=== PATIENT | female | born 1985 | race Caucasian/White ===

== ENCOUNTER 2018-07-22 21:05 | Emergency (ER) | payer MEDICAID ==
[~2018-07-22] VITALS: Ht 162.6 cm; Wt 72.6 kg
[~2018-07-22 21:05] MED LIST: CLIN300C11 PO; CLIN300C3 PO; HYDR-3455 PO; HYDR-4226 PO; NAPR-1071 PO; NAPR-243 PO; NF-CIPDEC OT; PRD20T PO; TRAM50TA2 PO
--- NOTE | 2018-07-22 21:59 | ED Psychosocial ---
General Chief Complaint: Substance Abuse Stated Complaint: TROUBLE SLEEPING Nursing Triage Note: PT. REPORTED 3 DAYS AGO SHE WAS DRINKING AND PARTYING. SHE WAS GIVEN IV DRUGS UNKNOWN WHAT THEY WERE. SHE REPORTED SHE HAS NOT SLEPT SINCE, SHE IS HEARING VOICES AND SHE CANT RELAX HER BODY KEEPS JERKING. SHE REPORTED SHE IS CONFUSED AND KEEPS STARING OFF AND CANT CONCENTRATE ON HER WORDS. Source: patient, family (brother) History of Present Illness Date Seen by Provider: Jul 22, 2018 Time Seen by Provider: 21:59 Initial Comments 32-year-old female presenting with complaints of trouble concentrating and sleeping. She used methamphetamines approximately 3 days ago and thinks that there were other drugs mixed in with it as well. She has been hearing voices and been very anxious and agitated in the last few days. Her family has been trying to help her as she does have a history of methamphetamine abuse. She has a hard time sitting still and has been unable to sleep because she can not relax or remain still without jerking. She denies being suicidal or homicidal. She is paranoid. Allergies and Home Medications Allergies Coded Allergies: No Known Drug Allergies (Unverified , 05/11/14) Home Medications Ciprofloxacin HCl/Dexameth 7.5 Ml Soln, 4 DROPS OT BID Prescribed by: CINDY VICENTE on 10/10/15 1340 Hydrocodone/Acetaminophen 1 Each Tablet, 1 EACH PO Q4H PRN for PAIN do not fill unless ciprodex is also filled. Prescribed by: CINDY VICENTE on 10/10/15 1340 Patient Home Medication List Home Medication List Reviewed: Yes Review of Systems Constitutional: No chills, No fever; malaise EENTM: other (dry mucus membranes); No ear pain, No vision loss, No epistaxis, No nose congestion Respiratory: cough; No dyspnea on exertion, No hemoptysis, No stridor Cardiovascular: No chest pain; palpitations Gastrointestinal: loss of appetite, nausea Genitourinary: decreased output; No dysuria Musculoskeletal: muscle cramps, muscle twitching Skin: change in color (red color to her skin) Psychiatric/Neurological: Anxiety, Emotional Problems, Tremors Past Oezbojn-Yluqov-Kehglc Hx Past Med/Social Hx: Reviewed Nursing Past Med/Soc Hx Patient Social History Alcohol Use: Regular Use Recreational Drug Use: Yes Drug of Choice: Methamphetamines Recent Foreign Travel: No Contact w/Someone Who Travel: No Recent Infectious Disease Expo: No Physical Abuse: No Sexual Abuse: No Mistreated: No Fear: No Immunizations Up To Date Tetanus Booster (TDap): Less than 5yrs Past Medical History Concussion, Traumatic Brain Injury Reproductive Disorders: No Adverse Reaction/Blood Tranf: No Family Medical History No Pertinent Family Hx Physical Exam Vital Signs - First Documented 07/22/18 21:20 Temp 97.8 Pulse 104 Resp 16 B/P (MAP) 145/94 (111) Pulse Ox 98 O2 Delivery Room Air Capillary Refill : Less Than 3 Seconds Height, Weight, BMI Height: 5'4.00" Weight: 160lbs. oz. 72.453556cb; BMI Method:Stated General Appearance: moderate distress HEENT: PERRL/EOMI, other (slightly dry mucus membranes) Neck: full range of motion, supple Respiratory: chest non-tender, lungs clear, normal breath sounds, no respiratory distress, no accessory muscle use Cardiovascular: normal peripheral pulses, regular rate, rhythm Gastrointestinal: normal bowel sounds, non tender, soft, no pulsatile mass Extremities: normal range of motion, non-tender, no pedal edema, normal capillary refill, other (erythema to hands and forearms) Neurologic/Psychiatric: international marketing coordinator II-XII nml as tested, no motor/sensory deficits, alert, other (anxious mood and disheveled appearance) Appearance/Memory: disheveled, impaired insight Behavior/Eye Contact: cooperative, increased rate of speech, compulsive Thoughts/Hallucinations: flight of ideas, paranoid Skin: warm/dry; No jaundice, No mottled; other (erythema to hands and forearms) Progress/Results/Core Measures Results/Orders My Orders Orders - BOSTON HORTON MD Lorazepam Tablet (Ativan Tablet) (07/22/18 22:18) Olanzapine Orally Dissolve Tab (Zyprexa (07/22/18 22:30) Medications Given in ED Current Medications Medications Dose Ordered Sig/Naya Route Start Time Stop Time Status Last Admin Dose Admin Olanzapine 5 mg ONCE ONCE PO 07/22/18 22:30 07/22/18 22:31 DC 07/22/18 22:24 5 MG Vital Signs/I&O 07/22/18 07/22/18 21:20 22:32 Temp 97.8 97.8 Pulse 104 104 Resp 16 16 B/P (MAP) 145/94 (111) 145/94 (111) Pulse Ox 98 98 O2 Delivery Room Air Room Air Blood Pressure Mean: 111 Progress Progress Note : Progress Note will try Ativan 2 mg po and Rapid Dissolving Zyprexa and see if that helps to calm her down and block some of the auditory hallucinations that she could rest. Counseled to avoid drugs and alcohol the future. Will have her follow-up through the clinics for further evaluation and treatment as needed. Departure Impression Primary Impression: Drug-induced psychotic disorder with hallucinations Additional Impressions: Methamphetamine abuse, episodic Insomnia Qualified Codes: F19.982 - Other psychoactive substance use, unspecified with psychoactive substance-induced sleep disorder Disposition: HOME, SELF-CARE Condition: Stable Departure-Patient Inst. Decision time for Depature: 22:22 Referrals: NO,LOCAL PHYSICIAN (PCP/Family) Primary Care Physician Patient Instructions: ALCOHOL AND SUBSTANCE ABUSE, Acute Psychosis (DC), Drug Abuse and Drug Addiction (DC), Methamphetamine Add. Discharge Instructions: Do not use drugs or alcohol Stay well hydrated and get plenty of rest Follow up with clinic for continued problems/concerns All discharge instructions reviewed with patient and/or family. Voiced understanding. BOSTON HORTON MD Jul 22, 2018 21:59
[2018-07-22] MEDS ORDERED: LORazepam 0.5 MG (ATIVAN) TABLET PO STA (22:18)
[2018-07-22] MEDS ORDERED: OLANZapine 5 MG ODT (ZyPREXA ZYDIS) PO ONE (22:30)
[2018-07-22 22:32] VITALS: BP 145/94
== END 2018-07-22 22:26 | disposition home or self-care (01) ==
LOC: EDUNIT# 21:05 → ER FS 21:07
DX: F19.959 Other psychoactive substance use, unspecified with psychoactive substance-induced psychotic disorder, unspecified (principal); F15.10 Other stimulant abuse, uncomplicated; G47.00 Insomnia, unspecified; Z87.820 Personal history of traumatic brain injury
CPT/HCPCS: 99283

== ENCOUNTER 2018-11-04 02:15 | Emergency (ER) | payer SELFPAY ==
[~2018-11-04] VITALS: Ht 154.9 cm; Wt 63.5 kg
--- NOTE | 2018-11-04 02:20 | NUR ---
Patient was intubated by EMS
--- NOTE | 2018-11-04 02:37 | NUR ---
PMH is unknown, all information is recalled.
[2018-11-04] MEDS ORDERED: NS IV 1000 ML 1,000 ML IV SCH (02:45)
[2018-11-04] MEDS ORDERED: TETANUS,DIPTH,PERTUSS P/F (BOOSTRIX) 0.5 ML VIAL IM ONE (02:45)
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
[2018-11-04 03:11] LABS: INR 1.1 (0.8-1.4); PROTHROMBIN TIME PATIENT 14.3 SEC (12.2-14.7)
[2018-11-04 03:12] LABS: AMPHETAMINE SCREEN, URINE NEGATIVE (NEGATIVE); BARBITURATE SCREEN URINE NEGATIVE (NEGATIVE); BENZODIAZEPINES SCREEN URINE NEGATIVE (NEGATIVE); CANNABINOID SCREEN, URINE NEGATIVE (NEGATIVE); COCAINE SCREEN URINE NEGATIVE (NEGATIVE); METHADONE STAT NEGATIVE (NEGATIVE); METHAMPHETAMINE SCREEN URINE S NEGATIVE (NEGATIVE); OPIATE SCREEN URINE NEGATIVE (NEGATIVE); OXYCODONE STAT NEGATIVE (NEGATIVE); PROPOXYPHENE STAT NEGATIVE (NEGATIVE); TRICYCLIC ANTIDEPRESSANTS SCRE NEGATIVE (NEGATIVE)
[2018-11-04 03:13] LABS: BASOPHILS # (AUTO) 0.1 10^3/uL (0.0-0.1); BASOPHILS % (AUTO) 1 % (0-10); EOSINOPHILS % (AUTO) 0 % (0-10); HEMATOCRIT 41 % (35-52); HEMOGLOBIN 13.3 G/DL (11.5-16.0); LYMPHOCYTES # (AUTO) 9.6 X 10^3 (1.0-4.0); LYMPHOCYTES % (AUTO) 52 % (12-44); MEAN CORPUSCULAR HEMOGLOBIN 28 PG (25-34); MEAN CORPUSCULAR HGB CONC 32 G/DL (32-36); MEAN CORPUSCULAR VOLUME 86 FL (80-99); MEAN PLATELET VOLUME 8.8 FL (7.4-10.4); MONOCYTES # (AUTO) 1.5 X 10^3 (0.0-1.0); MONOCYTES % (AUTO) 8 % (0-12); NEUTROPHILS # (AUTO) 7.2 X 10^3 (1.8-7.8); NEUTROPHILS % (AUTO) 39 % (42-75); PLATELET COUNT 308 10^3/uL (130-400); RED CELL DISTRIBUTION WIDTH 19.8 % (10.0-14.5); WHITE BLOOD COUNT 18.5 10^3/uL (4.3-11.0)
[2018-11-04 03:14] LABS: CLARITY,URINE CLOUDY; COLOR,URINE YELLOW
[2018-11-04 03:15] LABS: BILIRUBIN,URINE NEGATIVE (NEGATIVE); GLUCOSE, URINE (UA) NEGATIVE (NEGATIVE); KETONES,URINE NEGATIVE (NEGATIVE); LEUKOCYTE ESTERASE ,URINE 1+ (NEGATIVE); NITRITE,URINE NEGATIVE (NEGATIVE); PH,URINE 6.5 (5-9); PROTEIN,URINE 2+ (NEGATIVE); UROBILINOGEN,URINE 0.2 MG/DL (NORMAL)
[2018-11-04 03:15] LABS: CARBON DIOXIDE 29 MMOL/L (21-32); CHLORIDE 103 MMOL/L (98-107); POTASSIUM 4.2 MMOL/L (3.6-5.0); SODIUM 146 MMOL/L (135-145)
[2018-11-04 03:16] LABS: ALANINE AMINOTRANSFERASE 84 U/L (0-55); ALBUMIN 4.2 GM/DL (3.2-4.5); ALKALINE PHOSPHATASE 115 U/L (40-136); BILIRUBIN,TOTAL 0.5 MG/DL (0.1-1.0); BUN/CREATININE RATIO 10; CALCIUM 8.4 MG/DL (8.5-10.1); CREATININE SERUM 0.62 MG/DL (0.60-1.30); GFR ESTIMATED > 60; GLUCOSE 168 MG/DL (70-105); TOTAL PROTEIN 7.2 GM/DL (6.4-8.2)
[2018-11-04 03:27] LABS: NEUTROPHILS % (MANUAL) 38 %
[2018-11-04 03:28] LABS: ATYPICAL LYMPHOCYTES 25 %; LYMPHOCYTES % (MANUAL) 33 %; MONOCYTES % (MANUAL) 4 %; RBC MORPH NORMAL
[2018-11-04 03:28] LABS: BACTERIA,URINE LARGE /HPF; SQUAMOUS EPITHELIAL CELL,UR 25-50 /HPF
[2018-11-04 03:29] LABS: AMORPHOUS SEDIMENT,UR MOD AMOR URATES /LPF
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
[2018-11-07 18:47] VITALS: BP 154/78
== END 2018-11-04 03:10 | disposition short-term general hospital (02) ==
LOC: EDUNIT# 02:15 → ER FS 02:16
DX: T20.30XA Burn of third degree of head, face, and neck, unspecified site, initial encounter (principal); T22.391A Burn of third degree of multiple sites of right shoulder and upper limb, except wrist and hand, initial encounter; T21.21XA Burn of second degree of chest wall, initial encounter; F10.129 Alcohol abuse with intoxication, unspecified; Y90.9 Presence of alcohol in blood, level not specified; R40.2112 Coma scale, eyes open, never, at arrival to emergency department; R40.2212 Coma scale, best verbal response, none, at arrival to emergency department; R40.2312 Coma scale, best motor response, none, at arrival to emergency department; X08.8XXA Exposure to other specified smoke, fire and flames, initial encounter
CPT/HCPCS: 36415; 51702; 71045; 80053; 80306; 80320; 81000; 84703; 85007; 85027; 85610; 85730; 87077; 87088; 87186; 90471; 90715; 93005; 93041; 99291

== ENCOUNTER 2019-05-17 09:59 | Inpatient (IN) | payer MEDICARE, MEDICAID ==
[2019-05-17] VITALS (9 sets, daily range): BP systolic 120–151; BP diastolic 78–98
[~2019-05-17] VITALS: Ht 162.5 cm; Wt 70.6 kg
[~2019-05-17 09:59] MED LIST changes: -TRAM50TA2 PO; +TRM50T PO
[2019-05-17] MEDS ORDERED: NS IV 1000 ML 1,000 ML IV SCH (10:30)
[2019-05-17] MEDS ORDERED: ONDANSETRON 4 MG/2 ML (SDV) Z0FRAN IVP ONE ×2 (10:30→14:30)
[2019-05-17 10:37] LABS: WHITE BLOOD COUNT 12.9 10^3/uL (4.3-11.0)
[2019-05-17 10:38] LABS: HEMATOCRIT 39 % (35-52); HEMOGLOBIN 13.1 G/DL (11.5-16.0); MEAN CORPUSCULAR HEMOGLOBIN 27 PG (25-34); MEAN CORPUSCULAR HGB CONC 34 G/DL (32-36); MEAN CORPUSCULAR VOLUME 79 FL (80-99); MEAN PLATELET VOLUME 9.6 FL (7.4-10.4); NEUTROPHILS % (AUTO) 78 % (42-75); PLATELET COUNT 123 10^3/uL (130-400); RED CELL DISTRIBUTION WIDTH 19.8 % (10.0-14.5)
[2019-05-17 10:39] LABS: BASOPHILS % (AUTO) 0 % (0-10); EOSINOPHILS % (AUTO) 0 % (0-10); LYMPHOCYTES # (AUTO) 0.6 X 10^3 (1.0-4.0); LYMPHOCYTES % (AUTO) 4 % (12-44); MONOCYTES # (AUTO) 2.1 X 10^3 (0.0-1.0); MONOCYTES % (AUTO) 17 % (0-12); NEUTROPHILS # (AUTO) 10.1 X 10^3 (1.8-7.8)
--- NOTE | 2019-05-17 10:52 | Diagnostic Imaging Report ---
Indication: Shortness of breath, alcohol withdrawal. Comparison: 11/04/2018 Findings: Single view of the chest demonstrates clear lungs bilaterally. The heart is normal. There is no pneumothorax but osseous structures normal. Impression: Negative chest. Dictated by: Dictated on workstation # [id number]
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
[2019-05-17 11:01] LABS: CANNABINOID SCREEN, URINE POSITIVE (NEGATIVE)
[2019-05-17 11:02] LABS: AMPHETAMINE SCREEN, URINE NEGATIVE (NEGATIVE); BARBITURATE SCREEN URINE NEGATIVE (NEGATIVE); BENZODIAZEPINES SCREEN URINE NEGATIVE (NEGATIVE); COCAINE SCREEN URINE NEGATIVE (NEGATIVE); METHADONE STAT NEGATIVE (NEGATIVE); METHAMPHETAMINE SCREEN URINE S NEGATIVE (NEGATIVE); OPIATE SCREEN URINE NEGATIVE (NEGATIVE); OXYCODONE STAT NEGATIVE (NEGATIVE); PROPOXYPHENE STAT NEGATIVE (NEGATIVE); TRICYCLIC ANTIDEPRESSANTS SCRE NEGATIVE (NEGATIVE)
[2019-05-17 11:10] LABS: BAND NEUTROPHILS 13 %; BASOPHILS % (MANUAL) 0 %; EOSINOPHILS % (MANUAL) 0 %; LYMPHOCYTES % (MANUAL) 6 %; MONOCYTES % (MANUAL) 8 %; NEUTROPHILS % (MANUAL) 73 %
[2019-05-17 11:19] LABS: CLARITY,URINE SLT CLOUDY; COLOR,URINE YELLOW
[2019-05-17 11:20] LABS: GLUCOSE, URINE (UA) NEGATIVE (NEGATIVE); KETONES,URINE 3+ (NEGATIVE); NITRITE,URINE NEGATIVE (NEGATIVE); PROTEIN,URINE 2+ (NEGATIVE)
[2019-05-17 11:21] LABS: BILIRUBIN,URINE 2+ (NEGATIVE); LEUKOCYTE ESTERASE ,URINE 1+ (NEGATIVE); WBC,URINE TNTC /HPF
[2019-05-17 11:22] LABS: BACTERIA,URINE MODERATE /HPF; SQUAMOUS EPITHELIAL CELL,UR RARE /HPF
[2019-05-17 11:25] LABS: BUN/CREATININE RATIO 26; CARBON DIOXIDE 20 MMOL/L (21-32); CHLORIDE 70 MMOL/L (98-107); GFR ESTIMATED > 60; POTASSIUM 2.9 MMOL/L (3.6-5.0); SODIUM 120 MMOL/L (135-145)
[2019-05-17 11:26] LABS: ALANINE AMINOTRANSFERASE 176 U/L (0-55); ALKALINE PHOSPHATASE 287 U/L (40-136); BILIRUBIN,TOTAL 1.2 MG/DL (0.1-1.0); CALCIUM 9.8 MG/DL (8.5-10.1); GLUCOSE 140 MG/DL (70-105); LIPASE 94 U/L (8-78); TOTAL PROTEIN 8.4 GM/DL (6.4-8.2)
[2019-05-17] MEDS ORDERED: cefTRIAXone FOR IV USE 1,000 MG in WATER (STERILE) FOR INJECTION 10 ML IV ONE (11:45)
[2019-05-17] MEDS ORDERED: PANTOPRAZOLE 40 MG (PROTONIX) VIAL IV ONE (11:45)
[2019-05-17] MEDS ORDERED: LORazepam INJ 2 MG/ML (ATIVAN) VIAL IVP PRN (11:45)
[2019-05-17] MEDS ORDERED: 1/2 NS IV SOLUTION 1,000 ML IV PRN (15:42)
[2019-05-17] MEDS ORDERED: LORazepam INJ 2 MG/ML (ATIVAN) VIAL IM/IV PRN (15:45)
[2019-05-17] MEDS ORDERED: D5 1/2 NS 1000 ML IV SOLUTION 1,000 ML IV PRN (15:45)
[2019-05-17] MEDS ORDERED: ONDANSETRON 4 MG (ZOFRAN) ORAL DISSOLVE TAB SL PRN (15:45)
[2019-05-17] MEDS ORDERED: SENNA W/DOCUSATE (SENOKOT S) TABLET PO PRN (15:45)
[2019-05-17] MEDS ORDERED: ONDANSETRON 4 MG/2 ML (SDV) Z0FRAN IV PRN (15:45)
[2019-05-17] MEDS ORDERED: ANTACID SUSP 30 ML UDC (MYLANTA) PO PRN (15:45)
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
[2019-05-17] MEDS ORDERED: CATHETER FLUSH 10 ML SYR IV PRN (16:00)
[2019-05-17] MEDS ORDERED: LEVO100T7 PO (16:13)
[2019-05-17] MEDS ORDERED: CITA40TA11 PO (16:13)
[2019-05-17] MEDS ORDERED: BUSP10TA95 PO (16:13)
[2019-05-17] MEDS: D5 1/2 NS W/KCL 20 MEQ/L 1,000 ML IV SCH (16:13)
[2019-05-17] MEDS ORDERED: TRZ50T PO (16:13)
[2019-05-17] MEDS ORDERED: THIAMINE 100 MG/ML 2 ML (VITAMIN B-1) VIAL IV NR (16:15)
[2019-05-17] MEDS ORDERED: KCL 20 MEQ TAB (K-DUR) PO NR (16:15)
--- NOTE | 2019-05-17 16:15 | NUR ---
SPOKE WITH THE PATIENT ABOUT HER MEDICATIONS. SHE LISTED HER MEDS AND I COMPARED IT WITH THE EXT MED HX. THEY ARE PAST DUE FOR REFILL. SHE ADMITS SHE HAS NOT BEEN TAKING THEM PRESCRIBED. I NOTED THE PAST DUE FILL DATE ON THE MED REC. I DID CALL [facility] IN [place] AND VERIFIED THEY HAVE NOT FILLED ANYTHING FOR HER RECENTLY, THE SCRIPTS ON THE EXT MED [facility] [place]. PATIENT STATES SHE DOES TAKE ANY OTC MEDICATIONS.
[2019-05-17] MEDS ORDERED: ACETAMINOPHEN 500 MG TAB (TYLENOL) PO PRN (18:45)
[2019-05-17] MEDS ORDERED: IBUPROFEN 600 MG (MOTRIN) TAB PO ONE (18:45)
[2019-05-17] MEDS: IBUPROFEN 600 MG (MOTRIN) TAB PO SCH (18:53)
[2019-05-17] MEDS: MAGNESIUM 1 GM/100 ML IVPB 100 ML IV SCH ×2 (18:53→20:55)
[2019-05-17] MEDS: LORazepam INJ 2 MG/ML (ATIVAN) VIAL IV PRN (20:45)
[2019-05-17] MEDS: LORazepam 1 MG (ATIVAN) TAB PO PRN (23:38)
[2019-05-17] MEDS ORDERED: guaiFENesin/DM (ROBITUSSIN DM) 10 ML UDC ONE (23:39)
[2019-05-17] MEDS ORDERED: PSEUDOEPHEDRINE HCL 30 MG (SUDAFED) TAB PO PRN (23:45)
[2019-05-17] MEDS: guaiFENesin/DM (ROBITUSSIN DM) 10 ML UDC PO PRN (23:58)
[2019-05-18] VITALS (23 sets, daily range): BP systolic 99–135; BP diastolic 74–112
[2019-05-18] MEDS: D5 1/2 NS W/KCL 20 MEQ/L 1,000 ML IV SCH ×4 (00:45→17:48)
[2019-05-18 03:21] LABS: BASOPHILS % (AUTO) 0 % (0-10); EOSINOPHILS % (AUTO) 0 % (0-10); HEMATOCRIT 36 % (35-52); HEMOGLOBIN 12.3 G/DL (11.5-16.0); LYMPHOCYTES % (AUTO) 11 % (12-44); MEAN CORPUSCULAR HEMOGLOBIN 27 PG (25-34); MEAN CORPUSCULAR HGB CONC 34 G/DL (32-36); MEAN CORPUSCULAR VOLUME 81 FL (80-99); MONOCYTES # (AUTO) 1.2 X 10^3 (0.0-1.0); MONOCYTES % (AUTO) 13 % (0-12); NEUTROPHILS # (AUTO) 7.2 X 10^3 (1.8-7.8); NEUTROPHILS % (AUTO) 76 % (42-75); PLATELET COUNT 117 10^3/uL (130-400); RED CELL DISTRIBUTION WIDTH 20.7 % (10.0-14.5); WHITE BLOOD COUNT 9.4 10^3/uL (4.3-11.0)
[2019-05-18 03:39] LABS: BUN/CREATININE RATIO 10; CALCIUM 9.2 MG/DL (8.5-10.1); CARBON DIOXIDE 23 MMOL/L (21-32); CHLORIDE 88 MMOL/L (98-107); CREATININE SERUM 0.59 MG/DL (0.60-1.30); GFR ESTIMATED > 60; GLUCOSE 159 MG/DL (70-105); MAGNESIUM 2.4 MG/DL (1.6-2.4); SODIUM 128 MMOL/L (135-145)
[2019-05-18 03:50] LABS: PHOSPHORUS < 0.7 MG/DL (2.3-4.7)
--- NOTE | 2019-05-18 05:16 | Pulmonary Consultation ---
History of Present Illness History of Present Illness Date Seen by Provider: May 18, 2019 Time Seen by Provider: 05:13 Date of Admission History of Present Illness 33yo with hx of seizures, alcohol dependance presented to ED seeking detox. She drinks 1 liter of alcohol per day x "years". Last drink was day prior to admission. She believes she had a unwitnessed seizure prior to admission. I am consulted for ICU management. Allergies and Home Medications Allergies Coded Allergies: No Known Drug Allergies (Unverified , 05/11/14) Home Medications Buspirone HCl 10 Mg Tablet, 10 MG PO BID, (Reported) LAST FILLED #60 03-07-19 Citalopram Hydrobromide 40 Mg Tablet, 40 MG PO DAILY, (Reported) LAST FILLED #30 03-05-19 Levothyroxine Sodium 100 Mcg Tablet, 100 MCG PO DAILY, (Reported) LAST FILLED #90 01-25-19 Trazodone HCl 50 Mg Tablet, 50 MG PO HS, (Reported) LAST FILLED #30 03-05-19 Past Iprbrpa-Ofaqtv-Vasmtt Hx Past Med/Social Hx: Reviewed Nursing Past Med/Soc Hx Patient Social History Alcohol Use: Regular Use Number of Drinks Today: 0 Alcohol Beverage of Choice: Vodka Recreational Drug Use: No Drug of Choice: Methamphetamines Smoking Status: Current Everyday Smoker Type Used: Cigarettes 2nd Hand Smoke Exposure: No Recent Foreign Travel: No Contact w/Someone Who Travel: No Recent Infectious Disease Expo: No Recent Hopitalizations: No Physical Abuse: No Sexual Abuse: No Mistreated: No Fear: No Immunizations Up To Date Tetanus Booster (TDap): Less than 5yrs Seasonal Allergies Seasonal Allergies: No Past Medical History Surgeries: Yes (Skin Grafts) Respiratory: No Cardiac: No Neurological: Yes Concussion, Traumatic Brain Injury Reproductive Disorders: No Gastrointestinal: No Musculoskeletal: No Endocrine: Yes Hypothyroidsim HEENT: No Cancer: No Psychosocial: No Integumentary: No Blood Disorders: No Adverse Reaction/Blood Tranf: No Family Medical History No Pertinent Family Hx Review of Systems Time Seen by Provider: 06:18 Constitutional: Weakness, Malaise; No: Fever, Chills, Sweats, Other Eyes: No: Pain, Vision change, Conjunctivae inflammation, Eyelid inflammation, Other, Redness ENT: No: Ear pain, Ear discharge, Nose pain, Nose discharge, Nose congestion, Mouth pain, Mouth swelling, Throat pain, Throat swelling, Other Respiratory: No: Cough, Dry, Shortness of breath, SOB with excertion, Wheezing, Hemoptysis, Pleuritic Pain, Sputum, Wheezing, Other Cardiovascular: Paroxysmal Noc. Dyspnea, Lt Headedness; No: Chest Pain, Palpitations, Orthopnea, Edema, Other Sepsis Event Evaluation Height, Weight, BMI Height: 5'1.00" Weight: 140lbs. 0oz. 63.242300cz; 25.33 BMI Method:Estimated Exam Exam Vital Signs Date Time Temp Pulse Resp B/P (MAP) Pulse Ox O2 Delivery O2 Flow Rate FiO2 05/18/19 04:00 99 20 127/76 (93) 94 Room Air 05/18/19 04:00 96 Room Air 05/18/19 04:00 38.1 05/18/19 03:00 102 21 135/103 (114) 94 Room Air 05/18/19 02:00 87 21 119/81 (94) 96 Room Air 05/18/19 01:00 92 21 113/77 (89) 96 Room Air 05/18/19 01:00 90 05/18/19 00:00 37.4 05/18/19 00:00 96 Room Air 05/18/19 00:00 96 22 120/85 (97) 96 Room Air 05/17/19 23:00 80 22 120/85 (97) 96 Room Air 05/17/19 22:00 80 12 123/82 (96) 94 Room Air 05/17/19 21:00 89 20 123/83 (96) 93 Room Air 05/17/19 20:51 36.9 05/17/19 20:00 93 19 123/78 (93) 91 Room Air 05/17/19 20:00 96 Room Air 05/17/19 19:00 104 18 136/90 (105) 95 Room Air 05/17/19 19:00 104 05/17/19 18:53 38.1 05/17/19 18:00 102 32 142/95 (111) 95 Room Air 05/17/19 17:00 108 19 151/97 (115) 96 Room Air 05/17/19 16:29 Room Air 05/17/19 16:00 96 Room Air 05/17/19 16:00 135 16 151/98 (115) 96 Room Air 05/17/19 16:00 38.2 105 16 151/98 (115) 96 Room Air 05/17/19 15:25 111 05/17/19 15:25 112 20 140/82 (101) 98 Room Air 05/17/19 14:35 37.4 77 16 143/77 (100) 96 05/17/19 10:18 37.4 104 16 127/86 (100) 98 Room Air I & O 05/18/19 07:00 Intake Total 3200 ml Output Total 800 ml Balance 2400 ml Height & Weight Height: 5'1.00" Weight: 140lbs. 0oz. 63.269229jz; 25.33 BMI Method:Estimated General Appearance: No Apparent Distress, WD/WN, Chronically ill HEENT: No Moist Mucous Membranes, No Scleral Icterus (L), No Scleral Icterus (R); Other (right sided conjuncitivitis ) Neck: Normal Inspection, Supple Respiratory: Lungs Clear, No Accessory Muscle Use, No Respiratory Distress Cardiovascular: Regular Rate, Rhythm, No Murmur Capillary Refill: Less Than 3 Seconds Gastrointestinal: normal bowel sounds, non tender, soft Extremity: No Calf Tenderness, No Pedal Edema Neurologic/Psychiatric: Alert, Oriented x3, Depressed Affect Skin: Normal Color, Warm/Dry, Other (scars consistent with significant vee on bilateral lower arms) Results Lab Laboratory Tests 05/17/19 10:20 05/18/19 03:02 Assessment/Plan Assessment/Plan Alcohol detox -[facility] protocol Hyponatremia -Improving with current management. -May need to change to [facility] -Education Hypokalemia, hypophos -replace Hypothyroid -Continue synthroid Thrombocytopenia EMELINA CHACON DO May 18, 2019 05:16
[2019-05-18] MEDS: guaiFENesin/DM (ROBITUSSIN DM) 10 ML UDC PO PRN (05:36)
[2019-05-18] MEDS: LORazepam 1 MG (ATIVAN) TAB PO PRN ×6 (05:36→22:11)
[2019-05-18] MEDS: POTASSIUM CL 10MEQ/50ML IVPB 50 ML IV SCH ×4 (05:52→08:37)
[2019-05-18] MEDS: ENOXAPARIN 40 MG/0.4 ML (LOVENOX) SYR SC SCH (05:53)
[2019-05-18] MEDS: IBUPROFEN 600 MG (MOTRIN) TAB PO SCH ×3 (05:53→22:09)
[2019-05-18] MEDS: FOLIC ACID 1 MG TAB PO SCH (06:12)
[2019-05-18] MEDS: THIAMINE 100 MG (VITAMIN B-1) TAB PO SCH (06:12)
[2019-05-18] MEDS: LEVOTHYROXINE 100 MCG (LEVOTHROID) TAB PO SCH (06:12)
[2019-05-18] MEDS: MULTIVIT W/MINERALS TAB (THERAGRAN M) PO SCH (06:12)
[2019-05-18] MEDS ORDERED: POTASSIUM PHOSPHATE INJ 30 MM in NS (IVPB) 250 ML IV ONE (08:00)
--- NOTE | 2019-05-18 08:21 | Progress Note - Hospitalist ---
Subjective HPI/CC On Admission Date Seen by Provider: May 18, 2019 Time Seen by Provider: 08:16 She is a 33-year-old female with a past medical history of alcohol abuse and significant vee in October 2018 who presented to the emergency department seeking alcohol withdrawal. She reports she drinks 1 L of alcohol per day. She has done this for years. She does not relates to me in reason for her quick cessation of alcohol per ER physician this is been mandated by the state due to some custody issues. She reports her last drink was yesterday morning. She believes that she had a seizure yesterday afternoon. She has had multiple seizures in the past when she quit drinking. She reports feeling shaky at this time and is requesting Ativan. She was also found to have a sodium of 120. She was admitted to the ICU for active management of alcohol withdrawal and severe hyponatremia. Subjective/Events-last exam Pt reports doing better today. Smomewhat shakey and had hallucinations overnight that someone is in her room talking to her. Not currently hallucinating. Does complain of headache. Requesting ativan. Focused Exam Lactate Level 05/17/19 12:00: Lactic Acid Level 1.12 Objective Exam Vital Signs Vital Signs Date Time Temp Pulse Resp B/P (MAP) Pulse Ox O2 Delivery O2 Flow Rate FiO2 05/18/19 07:00 108 05/18/19 06:00 19 107/88 (94) 91 Room Air 05/18/19 04:00 38.1 Capillary Refill : Less Than 3 Seconds General Appearance: No Apparent Distress, WD/WN, Chronically ill Respiratory: Lungs Clear, No Respiratory Distress Cardiovascular: Regular Rate, Rhythm, No Murmur Gastrointestinal: Normal Bowel Sounds, Soft Neurologic/Psychiatric: Alert, Oriented x3 Results/Procedures Lab Laboratory Tests 05/17/19 10:20 05/18/19 03:02 Patient resulted labs reviewed. 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 consult- needs outpatient treatment Thiamine, MTV Seizure precautions Severe Hyponatremia- improving HAGMA- nearly resolved Likely due to alcoholic ketoacidosis and beer potomania na 128 today Continue IVF Thrombocytopenia new onset from October Likely due to #1 Stable this AM Hypophosphatemia Hypomagnesemia Hypokalemia Replace per protocol recheck this PM Hypothyroidism TSH 5.96 Resume home meds, per refill history has not been compliant Diagnosis/Problems Diagnosis/Problems (1) Thrombocytopenia Status: Acute (2) Alcoholic hepatitis Qualifiers: Ascites presence: without ascites Qualified Codes: K70.10 - Alcoholic hepatitis without ascites (3) Hypokalemia Status: Acute (4) High anion gap metabolic acidosis Status: Acute (5) Alcohol abuse Status: Acute (6) Hyponatremia Status: Acute Clinical Quality Measures DVT/VTE Risk/Contraindication: Risk Factor Score Per Nursin RFS Level Per Nursing on Admit: 1=Low/No VTE PPX IGNACIO HARRISON MD May 18, 2019 08:21
[2019-05-18] MEDS ORDERED: POTASSIUM PHOSPHATE 15 MM/NS 250 ML IVPB IV ONE ×2 (12:00)
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
[2019-05-18] MEDS: LORazepam INJ 2 MG/ML (ATIVAN) VIAL IV PRN (19:59)
[2019-05-18] MEDS ORDERED: NICOTINE 14 MG (NICODERM) PATCH TD NR (20:00)
[2019-05-19] VITALS (16 sets, daily range): BP systolic 102–144; BP diastolic 77–108
[2019-05-19] MEDS: D5 1/2 NS W/KCL 20 MEQ/L 1,000 ML IV SCH ×4 (00:30→21:40)
[2019-05-19] MEDS: LORazepam INJ 2 MG/ML (ATIVAN) VIAL IV PRN (02:06)
[2019-05-19 03:28] LABS: BASOPHILS # (AUTO) 0.1 10^3/uL (0.0-0.1); BASOPHILS % (AUTO) 1 % (0-10); EOSINOPHILS # (AUTO) 0.1 10^3/uL (0.0-0.3); EOSINOPHILS % (AUTO) 1 % (0-10); HEMATOCRIT 36 % (35-52); HEMOGLOBIN 11.4 G/DL (11.5-16.0); LYMPHOCYTES # (AUTO) 1.2 X 10^3 (1.0-4.0); LYMPHOCYTES % (AUTO) 18 % (12-44); MEAN CORPUSCULAR HEMOGLOBIN 27 PG (25-34); MEAN CORPUSCULAR HGB CONC 32 G/DL (32-36); MEAN CORPUSCULAR VOLUME 84 FL (80-99); MEAN PLATELET VOLUME 10.2 FL (7.4-10.4); MONOCYTES % (AUTO) 14 % (0-12); NEUTROPHILS # (AUTO) 4.4 X 10^3 (1.8-7.8); NEUTROPHILS % (AUTO) 66 % (42-75); PLATELET COUNT 175 10^3/uL (130-400); RED CELL DISTRIBUTION WIDTH 21.3 % (10.0-14.5); WHITE BLOOD COUNT 6.7 10^3/uL (4.3-11.0)
[2019-05-19 03:50] LABS: BUN/CREATININE RATIO 6; CALCIUM 8.8 MG/DL (8.5-10.1); CARBON DIOXIDE 22 MMOL/L (21-32); CHLORIDE 101 MMOL/L (98-107); CREATININE SERUM 0.51 MG/DL (0.60-1.30); GFR ESTIMATED > 60; GLUCOSE 108 MG/DL (70-105); MAGNESIUM 1.9 MG/DL (1.6-2.4); POTASSIUM 3.9 MMOL/L (3.6-5.0); SODIUM 134 MMOL/L (135-145)
[2019-05-19 03:55] LABS: PHOSPHORUS 0.7 MG/DL (2.3-4.7)
--- NOTE | 2019-05-19 04:48 | Pulmonary Progress Note ---
Subjective Time Seen by a Provider: 04:48 Subjective/Events-last exam Pt has been agitated through the night. She has been requesting Ativan. Sepsis Event Evaluation Height, Weight, BMI Height: 5'1.00" Weight: 140lbs. 0oz. 63.202060lf; 25.33 BMI Method:Estimated Focused Exam Lactate Level 05/17/19 12:00: Lactic Acid Level 1.12 Exam Exam Vital Signs Date Time Temp Pulse Resp B/P (MAP) Pulse Ox O2 Delivery O2 Flow Rate FiO2 05/19/19 04:00 94 17 113/84 (94) 97 Room Air 05/19/19 04:00 37.1 Room Air 05/19/19 04:00 Room Air 05/19/19 03:00 104 19 141/101 (114) 96 Room Air 05/19/19 02:00 108 21 130/108 (115) 98 Room Air 05/19/19 01:00 85 21 108/83 (91) 97 Room Air 05/19/19 01:00 85 05/19/19 00:00 89 20 102/77 (85) 96 Room Air 05/18/19 23:55 37.0 Room Air 05/18/19 23:45 Room Air 05/18/19 23:00 96 21 114/87 (96) 98 Room Air 05/18/19 22:00 96 23 116/101 (106) 96 Room Air 05/18/19 21:00 96 23 120/82 (95) 97 Room Air 05/18/19 20:00 Room Air 05/18/19 20:00 37.2 05/18/19 20:00 85 14 103/75 (84) 94 Room Air 05/18/19 19:45 98 19 24 Room Air 05/18/19 19:00 101 20 102/80 (87) 96 Room Air 05/18/19 19:00 90 05/18/19 18:00 106 22 99/75 (83) 97 Room Air 05/18/19 17:00 94 26 103/75 (84) 90 Room Air 05/18/19 16:00 37.6 05/18/19 16:00 93 18 103/78 (86) 95 Room Air 05/18/19 15:46 95 Room Air 05/18/19 15:00 107 38 107/81 (90) 93 Room Air 05/18/19 14:00 93 21 104/74 (84) 90 Room Air 05/18/19 13:00 90 32 114/82 (93) 95 Room Air 05/18/19 12:29 100 05/18/19 12:00 94 Room Air 05/18/19 12:00 98 17 129/112 (118) 91 Room Air 05/18/19 12:00 37.1 05/18/19 11:00 106 22 124/101 (109) 97 Room Air 05/18/19 10:00 100 97 Room Air 05/18/19 09:00 112 107/78 (88) 95 Room Air 05/18/19 08:00 101 110/77 (88) 92 Room Air 05/18/19 08:00 94 Room Air 05/18/19 07:00 108 05/18/19 07:00 36.8 05/18/19 07:00 93 26 121/89 (100) 91 Room Air 05/18/19 06:00 96 19 107/88 (94) 91 Room Air 05/18/19 05:00 100 22 127/92 (104) 91 Room Air I & O 05/19/19 07:00 Intake Total 3255 ml Output Total 2400 ml Balance 855 ml Height & Weight Height: 5'1.00" Weight: 140lbs. 0oz. 63.258446wi; 25.33 BMI Method:Estimated General Appearance: No Apparent Distress, WD/WN, Chronically ill HEENT: No Moist Mucous Membranes, No Scleral Icterus (L), No Scleral Icterus (R); Other (right sided conjuncitivitis ) Neck: Normal Inspection, Supple Respiratory: Lungs Clear, No Respiratory Distress Cardiovascular: Regular Rate, Rhythm, No Murmur Capillary Refill: Less Than 3 Seconds Gastrointestinal: normal bowel sounds, non tender, soft Extremity: No Calf Tenderness, No Pedal Edema Neurologic/Psychiatric: Alert, Oriented x3 Skin: Normal Color, Warm/Dry, Other (scars consistent with significant vee on bilateral lower arms) Results Lab Laboratory Tests 05/17/19 10:20 05/18/19 03:02 05/19/19 03:21 Assessment/Plan Assessment/Plan Alcohol detox -[facility]ANE protocol Hyponatremia -- improving -Improving with current management. -May need to change to NS Hx of bipolar -restart Buspirone [place] -Education hypophos -replace Hypothyroid -Continue synthroid Thrombocytopenia Will make ICU step down status and continue to monitor close. EMELINA CHACON DO May 19, 2019 04:48
[2019-05-19] MEDS: ENOXAPARIN 40 MG/0.4 ML (LOVENOX) SYR SC SCH (05:39)
[2019-05-19] MEDS: LORazepam 1 MG (ATIVAN) TAB PO PRN ×6 (05:39→21:31)
[2019-05-19] MEDS: MULTIVIT W/MINERALS TAB (THERAGRAN M) PO SCH (05:39)
[2019-05-19] MEDS: FOLIC ACID 1 MG TAB PO SCH (05:39)
[2019-05-19] MEDS: THIAMINE 100 MG (VITAMIN B-1) TAB PO SCH (05:39)
[2019-05-19] MEDS: IBUPROFEN 600 MG (MOTRIN) TAB PO SCH ×3 (05:39→21:26)
[2019-05-19] MEDS: LEVOTHYROXINE 100 MCG (LEVOTHROID) TAB PO SCH (05:39)
[2019-05-19] MEDS ORDERED: SODIUM PHOSPHATE INJ 30 MM in NS (IVPB) 250 ML IV ONE ×5 (08:00→13:00)
[2019-05-19] MEDS: busPIRone 10 MG (BUSPAR) TAB PO SCH ×2 (08:06→21:24)
[2019-05-19] MEDS: PATCH REMOVAL TP SCH (08:06)
[2019-05-19] MEDS ORDERED: NICOTINE 14 MG (NICODERM) PATCH TD SCH (09:00)
--- NOTE | 2019-05-19 09:00 | NUR ---
PT WILL NOT KEEP BP CUFF OR TELEMETRY ON AT THIS TIME. ATTEMPTED TO EDUCATE PT ON NEED TO MONITOR VS, PT CONTINUES TO REMOVE ITEMS.
--- NOTE | 2019-05-19 09:00 | NUR ---
DR LEONARD INFORMED OF UA RESULTS.
--- NOTE | 2019-05-19 12:59 | Progress Note - Hospitalist ---
Subjective HPI/CC On Admission Date Seen by Provider: May 19, 2019 Time Seen by Provider: 08:45 She is a 33-year-old female with a past medical history of alcohol abuse and significant vee in October 2018 who presented to the emergency department seeking alcohol withdrawal. She reports she drinks 1 L of alcohol per day. She has done this for years. She does not relates to me in reason for her quick cessation of alcohol per ER physician this is been mandated by the state due to some custody issues. She reports her last drink was yesterday morning. She believes that she had a seizure yesterday afternoon. She has had multiple seizures in the past when she quit drinking. She reports feeling shaky at this time and is requesting Ativan. She was also found to have a sodium of 120. She was admitted to the ICU for active management of alcohol withdrawal and severe hyponatremia. Subjective/Events-last exam She is awake and alert this morning. She is sitting up in her bed. She denies any headaches. She denies any nausea or vomiting. She is not having any tremors. She denies any hallucinations. She believes that her withdrawal is improving. Focused Exam Lactate Level 05/17/19 12:00: Lactic Acid Level 1.12 Objective Exam Vital Signs Vital Signs Date Time Temp Pulse Resp B/P (MAP) Pulse Ox O2 Delivery O2 Flow Rate FiO2 05/19/19 12:20 Room Air 05/19/19 12:00 37.0 05/19/19 12:00 111 28 127/96 (106) 05/19/19 08:00 95 Capillary Refill : Less Than 3 Seconds General Appearance: No Apparent Distress, WD/WN, Other (disheveled) HEENT: PERRL/EOMI, Pharynx Normal Neck: Normal Inspection, Supple Respiratory: Lungs Clear, Normal Breath Sounds, No Respiratory Distress Cardiovascular: Regular Rate, Rhythm, No Edema, No Murmur Gastrointestinal: Normal Bowel Sounds, Non Tender, Soft Extremity: Normal Inspection, Non Tender, No Pedal Edema Neurologic/Psychiatric: Alert, Oriented x3, No Motor/Sensory Deficits Skin: Normal Color, Warm/Dry Results/Procedures Lab Laboratory Tests 05/19/19 03:21 Patient resulted labs reviewed. 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 Thiamine, MTV Seizure precautions Hypophosphatemia continue to monitor and replace as needed Hypothyroidism continue home meds Hyponatremia, resolved HAGMA, resolved Thrombocytopenia, resolved Hypomagnesemia, resolved Hypokalemia, resolved Diagnosis/Problems Diagnosis/Problems (1) Alcohol withdrawal Status: Acute Qualifiers: Complication of substance-induced condition: with perceptual disturbance Qualified Codes: F10.232 - Alcohol dependence with withdrawal with perceptual disturbance Clinical Quality Measures DVT/VTE Risk/Contraindication: Risk Factor Score Per Nursin RFS Level Per Nursing on Admit: 1=Low/No VTE PPX JENNIFER LEONARD MD May 19, 2019 12:59
[2019-05-19] MEDS ORDERED: MELATONIN 3 MG TABLET PO PRN (13:45)
--- NOTE | 2019-05-19 13:54 | NUR ---
UA C&S RESULTS GIVEN TO DR LEONARD.
[2019-05-19] MEDS ORDERED: NITROFURANTOIN 100 MG (MACROBID) CAPSULE PO SCH (14:30)
[2019-05-19] MEDS: NITROFURANTOIN 100 MG (MACROBID) CAPSULE PO SCH (14:49)
--- NOTE | 2019-05-19 16:13 | NUR ---
PT TRANSFERRED TO [facility] VIA W/ STAFF/PERSONAL BELONGINGS. REPORT GIVEN TO PAUL SMALL WHO ASSUMES CARE OF PT. NO QUESTIONS/CONCERNS VOICED.
--- NOTE | 2019-05-19 16:15 | NUR ---
Received bedside report from GEOVANNY Pham. I agree with previous center human resources manager and will assume care at this time.
[2019-05-19] MEDS ORDERED: NICOTINE 21 MG (NICODERM) PATCH ONE (21:16)
[2019-05-19] MEDS ORDERED: hydrALAZINE (APESOLINE) 20 MG/ML VIAL IV PRN (21:30)
[2019-05-19] MEDS: NICOTINE 21 MG (NICODERM) PATCH TD SCH (22:09)
--- NOTE | 2019-05-19 22:30 | NUR ---
REPORT RECEIVED FROM CELINE TURNER RN. PT IN ROOM RESTING AT THIS TIME.
[2019-05-20] VITALS: BP 115/89
[2019-05-20] MEDS: LORazepam INJ 2 MG/ML (ATIVAN) VIAL IV PRN ×3 (00:24→05:02)
--- NOTE | 2019-05-20 00:33 | NUR ---
2130 PT HAD CIWA SCORE OF 24 AND TOOK 4 MG ORAL ATIVAN. 2200 30 MINUTE REPEAT, SCORE OF THE 3 0015 PT'S IV WAS BEEPING AND SHE WAS ANXIOUS, AGITATED, RESTLESS AND FIDGETY IN BED. THIS RN CONFERRED WITH CONCESSION STAND ATTENDANT, RIZWAN Garg RN AND DECIDED TO DO CIWA SCALE AN HOUR AND 15 MINUTES EARLY D/T SYMPTOMS. PT SCORED 23 ON CIWA SCALE AT THIS TIME. ONCE AGAIN I DISCUSSED PO VS IV ATIVAN WITH MY CONCESSION STAND ATTENDANT, RIZWAN, AND DECIDED THAT IV ATIVAN MAY WORK BETTER FOR PT D/T LONG HISTORY OF DRUG USE. PT WAS VERY AGREEABLE TO THIS AND TOLD THIS RN THAT THE ORAL FORM OF ATIVAN DID NOT WORK. SHE DOES REPEAT SELF OFTEN AND REPORTS THAT SHE FORGETS WHERE SHE IS A LOT OF THE TIME. THIS NURSE WILL REPEAT CIWA AT 0050, 30 MINUTES AFTER IV ADMINISTRATION.
[2019-05-20 03:25] VITALS: BP 136/99
[2019-05-20] MEDS: FOLIC ACID 1 MG TAB PO SCH (05:02)
[2019-05-20] MEDS: ENOXAPARIN 40 MG/0.4 ML (LOVENOX) SYR SC SCH (05:02)
[2019-05-20] MEDS: THIAMINE 100 MG (VITAMIN B-1) TAB PO SCH (05:02)
[2019-05-20] MEDS: LEVOTHYROXINE 100 MCG (LEVOTHROID) TAB PO SCH (05:02)
[2019-05-20] MEDS: MULTIVIT W/MINERALS TAB (THERAGRAN M) PO SCH (05:03)
[2019-05-20 05:36] LABS: BASOPHILS # (AUTO) 0.2 10^3/uL (0.0-0.1); BASOPHILS % (AUTO) 2 % (0-10); EOSINOPHILS # (AUTO) 0.2 10^3/uL (0.0-0.3); EOSINOPHILS % (AUTO) 2 % (0-10); HEMATOCRIT 37 % (35-52); HEMOGLOBIN 11.7 G/DL (11.5-16.0); LYMPHOCYTES # (AUTO) 1.8 X 10^3 (1.0-4.0); LYMPHOCYTES % (AUTO) 24 % (12-44); MEAN CORPUSCULAR HEMOGLOBIN 27 PG (25-34); MEAN CORPUSCULAR HGB CONC 32 G/DL (32-36); MEAN CORPUSCULAR VOLUME 84 FL (80-99); MEAN PLATELET VOLUME 9.4 FL (7.4-10.4); MONOCYTES # (AUTO) 1.4 X 10^3 (0.0-1.0); MONOCYTES % (AUTO) 19 % (0-12); NEUTROPHILS # (AUTO) 3.8 X 10^3 (1.8-7.8); NEUTROPHILS % (AUTO) 52 % (42-75); PLATELET COUNT 302 10^3/uL (130-400); RED CELL DISTRIBUTION WIDTH 22.1 % (10.0-14.5); WHITE BLOOD COUNT 7.2 10^3/uL (4.3-11.0)
[2019-05-20 05:52] LABS: BUN/CREATININE RATIO 9; CALCIUM 9.4 MG/DL (8.5-10.1); CARBON DIOXIDE 22 MMOL/L (21-32); CHLORIDE 104 MMOL/L (98-107); CREATININE SERUM 0.57 MG/DL (0.60-1.30); GFR ESTIMATED > 60; GLUCOSE 91 MG/DL (70-105); MAGNESIUM 1.6 MG/DL (1.6-2.4); PHOSPHORUS 3.1 MG/DL (2.3-4.7); SODIUM 137 MMOL/L (135-145)
[2019-05-20 06:36] LABS: LYMPHOCYTES % (MANUAL) 28 %; MONOCYTES % (MANUAL) 20 %; NEUTROPHILS % (MANUAL) 42 %
[2019-05-20 06:37] LABS: EOSINOPHILS % (MANUAL) 2 %; METAMYELOCYTES % 7 %; PROLYMPHOCYTE % 1 %
--- NOTE | 2019-05-20 06:42 | NUR ---
PT TOOK OFF HER TELEMETRY REPEATEDLY THRU THE NIGHT. SHE WAS REORIENTED EVERY TIME BY NURSING STAFF OF KEEPING IT ON. ICU PACKAGING CLERK, ROLF, CALLED SEVERAL TIMES TO PLACE TELE BACK ON AND WHEN STAFF DID, PT ASKED AGAIN WHY SHE NEEDED IT AND WHAT IT WAS FOR. MARKETING DEVELOPMENT MANAGER, RIZWAN WISE NOTIFIED AND SHE SAID THAT IF PT KEPT TAKING IT OFF TO LEAVE IT OFF AND LET ICU KNOW. ROLF IN ICU WAS NOTIFIED.
--- NOTE | 2019-05-20 06:44 | NUR ---
CWIA SCALE USED SEVERAL TIMES THRU THE NIGHT BY REQUEST OF PT. SHE WOULD BECOME MORE FIDGETY AND NERVOUS. SHE WOULD TELL THIS RN THAT SHE WAS HEARING LOUD NOISES LIKE STAFF WAS MOVING FURNITURE IN HALLWAY, ALONG WITH HEADACHE, LIGHT SENSITIVITY AND ITCHING. AFTER EACH TIME IV ATIVAN WAS ADMIN AND IT WAS TIME FOR THIS NURSE TO REASSESS, SHE WAS ASLEEP. SHE WOULD WAKE UP HOUR OR TWO LATER AND FORGET THAT SHE HAD TELESITTER AND GET UP OUT OF BED. SHE ASKED PCT STAFF FOR CIGARETTES ON SEVERAL OCCASIONS. SHE WAS ALWAYS VERY POLITE TO THIS RN AND WOULD ASK FOR ATIVAN DUE TO PREVIOUSLY STATED SYMPTOMS.
[2019-05-20] MEDS: IBUPROFEN 600 MG (MOTRIN) TAB PO SCH (07:27)
[2019-05-20] MEDS: D5 1/2 NS W/KCL 20 MEQ/L 1,000 ML IV SCH (07:28)
[2019-05-20] MEDS: NITROFURANTOIN 100 MG (MACROBID) CAPSULE PO SCH (07:30)
[2019-05-20 08:00] VITALS: BP 129/95
[2019-05-20] MEDS: PATCH REMOVAL TP SCH (08:20)
[2019-05-20] MEDS: NICOTINE 21 MG (NICODERM) PATCH TD SCH (08:20)
[2019-05-20] MEDS: busPIRone 10 MG (BUSPAR) TAB PO SCH (08:20)
--- NOTE | 2019-05-20 08:30 | NUR ---
PT AGITATED DURING ASSESSMENT REQUESTING TO LEAVE. PT REQUESTING TO BE GIVEN ATIVAN. PT WAS SCORED ON CIWA SCALE AND GIVEN 1MG PO. PT UPSET WITH NURSE AND STATED "THIS IS ALL I CAN GET?"
[2019-05-20] MEDS: LORazepam 1 MG (ATIVAN) TAB PO PRN (08:32)
--- NOTE | 2019-05-20 09:15 | NUR ---
DR LEONARD NOTIFIED THIS RN OF PT LEAVING AMA.
--- NOTE | 2019-05-20 09:30 | NUR ---
PT SIGNED AMA PAPERS AND IV REMOVED. JBOSS DEVELOPER WAS NOTIFIED. PT REPORTS HAVING A RIDE BUT NOT AT THIS TIME AND WANTING TO WALK. D/T THE WEATHER AND PT UNSTEADY ON FEET JBOSS DEVELOPER STATED PT COULD WAIT IN ROOM UNTIL RIDE ARRIVED.
--- NOTE | 2019-05-20 12:28 | Progress Note - Hospitalist ---
Subjective HPI/CC On Admission Date Seen by Provider: May 20, 2019 Time Seen by Provider: 09:15 She is a 33-year-old female with a past medical history of alcohol abuse and significant vee in October 2018 who presented to the emergency department seeking alcohol withdrawal. She reports she drinks 1 L of alcohol per day. She has done this for years. She does not relates to me in reason for her quick cessation of alcohol per ER physician this is been mandated by the state due to some custody issues. She reports her last drink was yesterday morning. She believes that she had a seizure yesterday afternoon. She has had multiple seizures in the past when she quit drinking. She reports feeling shaky at this time and is requesting Ativan. She was also found to have a sodium of 120. She was admitted to the ICU for active management of alcohol withdrawal and severe hyponatremia. Subjective/Events-last exam She denies any hallucinations. She denies any headache. She denies any nausea or vomiting. She denies any tremors. She did require Ativan overnight and again this morning. She thinks that she should not stay in the hospital longer. Is asking for IV to be removed. She says that she has a friend coming to pick her up today. She is demonstrating capacity to make medical decisions and at this time she will be allowed to leave AGAINST MEDICAL ADVICE if she chooses to do so. Objective Exam Vital Signs Vital Signs Date Time Temp Pulse Resp B/P (MAP) Pulse Ox O2 Delivery O2 Flow Rate FiO2 05/20/19 09:00 95 Room Air 05/20/19 08:00 37.8 106 18 129/95 (106) Capillary Refill : Less Than 3 Seconds General Appearance: No Apparent Distress, WD/WN HEENT: PERRL/EOMI, Pharynx Normal Neck: Normal Inspection, Supple Respiratory: Lungs Clear, Normal Breath Sounds, No Respiratory Distress Cardiovascular: Regular Rate, Rhythm, No Edema, No Murmur Gastrointestinal: Normal Bowel Sounds, Non Tender, Soft Extremity: Normal Inspection, Non Tender, No Pedal Edema Neurologic/Psychiatric: Alert, Oriented x3, No Motor/Sensory Deficits, Normal Mood/Affect Results/Procedures Lab Laboratory Tests 05/20/19 04:54 Patient resulted labs reviewed. 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, appreciate assistance Continue vitamin replacement Seizure precautions Hypothyroidism continue home meds Hypophosphatemia, resolved Hyponatremia, resolved HAGMA, resolved Thrombocytopenia, resolved Hypomagnesemia, resolved Hypokalemia, resolved Diagnosis/Problems Diagnosis/Problems (1) Alcohol withdrawal Status: Acute Qualifiers: Complication of substance-induced condition: with perceptual disturbance Qualified Codes: F10.232 - Alcohol dependence with withdrawal with perceptual disturbance Clinical Quality Measures DVT/VTE Risk/Contraindication: Risk Factor Score Per Nursin RFS Level Per Nursing on Admit: 1=Low/No VTE PPX JENNIFER LEONARD MD May 20, 2019 12:28
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
--- NOTE | 2019-05-21 15:38 | NUR ---
CM/SS: TFI worker Navjot Stroud [phone] notified that pt left the hospital on 05-20-2019 Against Medical Advice, and she did not go to Inpatient drug and alcohol treatment.
--- NOTE | 2019-05-21 16:42 | Discharge Summary ---
Discharge Summary Hospital Course Problems/Dx: (1) Alcohol withdrawal Status: Acute Qualifiers: Qualified Codes: F10.232 - Alcohol dependence with withdrawal with perceptual disturbance Hospital Course Date of Admission: May 17, 2019 at 12:18 Admission Diagnosis : Family Physician/Provider: No,Local Physician Date of Discharge: 05/21/19 Discharge Diagnosis: [ ] Hospital Course: [ ] Labs and Pending Lab Test: Microbiology 05/18/19 C. difficile GDH Antigen & Toxins - Final, Complete 05/17/19 MRSA Screen - Final, Complete MRSA not isolated 05/17/19 Urine Culture - Final, Complete Escherichia coli Home Meds Active Reported Levothyroxine Sodium 100 Mcg Tablet 100 Mcg PO DAILY LAST FILLED #90 01-25-19 Trazodone HCl 50 Mg Tablet 50 Mg PO HS LAST FILLED #30 03-05-19 Citalopram HBr (Citalopram Hydrobromide) 40 Mg Tablet 40 Mg PO DAILY LAST FILLED #30 03-05-19 Buspirone HCl 10 Mg Tablet 10 Mg PO BID LAST FILLED #60 03-07-19 Discharge Physical Examination Vital Signs Vital Signs Date Time Temp Pulse Resp B/P (MAP) Pulse Ox O2 Delivery O2 Flow Rate FiO2 05/20/19 09:00 95 Room Air 05/20/19 08:00 37.8 106 18 129/95 (106) Allergies: Coded Allergies: No Known Drug Allergies (Unverified , 05/11/14) Discharge Summary Date of Admission May 17, 2019 at 12:18 Date of Discharge May 20, 2019 at 14:40 Admission Diagnosis Alcohol Withdrawal Discharge Diagnosis Alcohol withdrawal Alcoholic hepatitis Alcohol abuse [facility] protocol 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
== END 2019-05-20 14:40 | disposition left against medical advice (07) | DRG 894 ==
LOC: EDUNIT# 09:59 → ER FS 10:00 → ICU 12:18 → 4TH 05-19 16:02
PROVIDERS: ADMIT Family Medicine; ATTEND Family Medicine
DX: F10.232 Alcohol dependence with withdrawal with perceptual disturbance (principal); K70.10 Alcoholic hepatitis without ascites; E87.2 Acidosis; E87.1 Hypo-osmolality and hyponatremia; D69.6 Thrombocytopenia, unspecified; E87.6 Hypokalemia; E83.39 Other disorders of phosphorus metabolism; E83.42 Hypomagnesemia; H10.9 Unspecified conjunctivitis; E03.9 Hypothyroidism, unspecified; F12.10 Cannabis abuse, uncomplicated; F15.10 Other stimulant abuse, uncomplicated; F17.210 Nicotine dependence, cigarettes, uncomplicated; Z87.820 Personal history of traumatic brain injury
CPT/HCPCS: 36415; 71045; 80048; 80053; 80306; 80320; 81000; 82962; 83605; 83690; 83735; 84100; 84443; 84703; 85007; 85025; 85027; 87077; 87081; 87088; 87186; 87324; 87449; 87804; 93005; 96361; 96374; 96375; 96376

== ENCOUNTER 2022-08-15 18:29 | Emergency (ER) | payer MEDICARE, MEDICAID ==
[~2022-08-15] VITALS: Ht 162.5 cm; Wt 90.7 kg
[~2022-08-15 18:29] MED LIST changes: +BUSP10TA95 PO; +CITA40TA13 PO; +CLIN-144 PO; -CLIN300C11 PO; +LEVO100T7 PO; +TRZ50T PO
--- NOTE | 2022-08-15 19:04 | ED Neurological Problem ---
General Chief Complaint: Neurological Problems Stated Complaint: SEIZURE Nursing Triage Note: Patient brought to the ED by EMS for chief complaint of a seizure. Patient states she has a TBI and has seizures. She states she forgot to take her lamictal yesterday and today. Source: patient, EMS Exam Limitations: no limitations History of Present Illness Date Seen by Provider: Aug 15, 2022 Time Seen by Provider: 18:32 Initial Comments 36-year-old female presents to the emergency department today via EMS after seizure activity. She states she has had several seizures today. She had a TBI couple years ago and has had seizures since that time. She takes lamotrigine 200 mg daily. She states she forgot to take it the last couple of days. She denies any fevers or chills. She bit her tongue but has no other injuries from the seizure. She feels anxious and was asking EMS for Ativan during her transport. She immediately asked for Ativan upon arrival. All other systems reviewed and negative except documented per HPI. Voice recognition software was used to help create this chart Allergies and Home Medications Allergies Coded Allergies: No Known Drug Allergies (Unverified , 05/11/14) Patient Home Medication List Home Medication List Reviewed: Yes Buspirone HCl (Buspirone HCl) 10 Mg Tablet, 10 MG PO BID, (Reported) Entered as Reported by: ELVIN FIORE on 05/17/191612 Citalopram Hydrobromide (Citalopram HBr) 40 Mg Tablet, 40 MG PO DAILY, (Reported) Entered as Reported by: ELVIN FIORE on 05/17/191612 Levothyroxine Sodium (Levothyroxine Sodium) 100 Mcg Tablet, 100 MCG PO DAILY, (Reported) Entered as Reported by: ELVIN FIORE on 05/17/191612 Trazodone HCl (Trazodone HCl) 50 Mg Tablet, 50 MG PO HS, (Reported) Entered as Reported by: ELVIN FIORE on 05/17/191612 Review of Systems Review of Systems Constitutional: see HPI Past Hngfgev-Njnrih-Pwjhts Hx Patient Social History Tobacco Use?: No Use of E-Cig and/or Vaping dev: Yes Substance use?: No Alcohol Use?: No Pt feels they are or have been: No Immunizations Up To Date Tetanus Booster (TDap): Less than 5yrs Seasonal Allergies Seasonal Allergies: No Past Medical History Surgery/Hospitalization HX: TBI, seizures Surgeries: Yes (Skin Grafts) Respiratory: No Cardiac: No Neurological: Yes Concussion, Traumatic Brain Injury Reproductive Disorders: No Gastrointestinal: No Musculoskeletal: No Endocrine: Yes Hypothyroidsim HEENT: No Cancer: No Psychosocial: No Integumentary: No Blood Disorders: No Adverse Reaction/Blood Tranf: No Family Medical History Reviewed Nursing Family Hx No Pertinent Family Hx Physical Exam Vital Signs Vital Signs - First Documented 08/15/22 18:29 Temp 37.1 Pulse 106 Resp 16 B/P (MAP) 112/70 (84) Pulse Ox 93 O2 Delivery Room Air Capillary Refill : Less Than 3 Seconds Height, Weight, BMI Height: 5'1.00" Weight: 140lbs. 0oz. [id number]; 34.00 BMI Method:Estimated General Appearance: WD/WN, no apparent distress HEENT: PERRL/EOMI, normal ENT inspection, TMs normal, pharynx normal, other (Abrasion to the left lateral tongue) Neck: non-tender, supple Respiratory: chest non-tender, lungs clear, normal breath sounds, no respiratory distress, no accessory muscle use Cardiovascular: regular rate, rhythm, no murmur Gastrointestinal: normal bowel sounds, non tender, soft, no organomegaly, no pulsatile mass Back: normal inspection, no vertebral tenderness Extremities: normal range of motion, non-tender, normal inspection, no pedal edema, no calf tenderness Neurologic/Psychiatric: alert, normal mood/affect, oriented x 3 Skin: normal color, warm/dry Procedures/Interventions Date of ETT Placement: Nov 04, 2018 Progress/Results/Core Measures Results/Orders Vital Signs/I&O 08/15/22 08/15/22 18:29 19:13 Temp 37.1 37.0 Pulse 106 86 Resp 16 16 B/P (MAP) 112/70 (84) 126/78 Pulse Ox 93 95 O2 Delivery Room Air Room Air Blood Pressure Mean: 84 Departure Communication (Admissions) Patient is hemodynamically stable, alert and oriented. She has not taken her lamotrigine for 2 days which is likely the source of her decrease seizure threshold. She has no focal neuro findings and is back to normal baseline with normal vital signs. No indication for lab work-up or imaging at this time. No obvious injuries outside of a tongue abrasion. Discharged in stable condition. Impression Primary Impression: Seizure Disposition: 01 HOME, SELF-CARE Condition: Stable Departure-Patient Inst. Referrals: NO,LOCAL PHYSICIAN (PCP/Family) Primary Care Physician Patient Instructions: Seizures, Adult ED Add. Discharge Instructions: It is important that you take your lamotrigine as scheduled to minimize seizure activity. Increase your fluids at home, rest. Return to the emergency depar tment for any severe concerns. You will need to talk to your doctor about a longer term anxiety treatment. All discharge instructions reviewed with patient and/or family. Voiced understanding. RANDOLPH ALLRED DO Aug 15, 2022 19:04
[2022-08-15 19:13] VITALS: BP 126/78
== END 2022-08-15 19:13 | disposition home or self-care (01) ==
LOC: ER FS 18:29 → EDUNIT# 18:29 → ER FS 19:13
DX: S00.512A Abrasion of oral cavity, initial encounter (principal); G40.909 Epilepsy, unspecified, not intractable, without status epilepticus; T42.6X6A Underdosing of other antiepileptic and sedative-hypnotic drugs, initial encounter; F17.290 Nicotine dependence, other tobacco product, uncomplicated; Z91.138 Patient's unintentional underdosing of medication regimen for other reason; Z79.899 Other long term (current) drug therapy; X58.XXXA Exposure to other specified factors, initial encounter

== ENCOUNTER 2023-03-07 01:05 | Emergency (ER) | payer OTHER, MEDICARE, MEDICAID ==
[~2023-03-07] VITALS: Ht 162.6 cm; Wt 77.1 kg
[2023-03-07 01:09] VITALS: BP 144/94
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
== END 2023-03-07 01:20 ==
LOC: EDUNIT# 01:05 → ER FS 01:07
DX: F10.129 Alcohol abuse with intoxication, unspecified (principal); F19.10 Other psychoactive substance abuse, uncomplicated; E66.9 Obesity, unspecified; F17.210 Nicotine dependence, cigarettes, uncomplicated; Z68.34 Body mass index [BMI] 34.0-34.9, adult; Y90.9 Presence of alcohol in blood, level not specified
CPT/HCPCS: 99285

== ENCOUNTER 2023-03-21 11:56 | Emergency (ER) | payer MEDICARE, MEDICAID ==
[~2023-03-21] VITALS: Ht 162.6 cm; Wt 69.5 kg
[2023-03-21] MEDS ORDERED: diphenhydrAMINE INJ 50 MG/ML VIAL IM ONE (12:15)
[2023-03-21] MEDS ORDERED: DroPERidol INJECTION 5 MG/2 ML (ED ONLY!) IM ONE (12:15)
--- NOTE | 2023-03-21 12:17 | ED Psychosocial ---
General Chief Complaint: Suicidal Ideation Risk Stated Complaint: DRUG USE; SUICIDAL/HOMICIDAL IDEATION Source: patient Exam Limitations: no limitations History of Present Illness Date Seen by Provider: Mar 21, 2023 Time Seen by Provider: 11:59 Initial Comments 37-year-old female with past medical history of polysubstance use disorder and depression coming in due to suicidal and homicidal ideation. She states she did a line of meth about an hour prior to arrival, and she feels like she just wants to cut up her entire skin with glass. She states she feels this way because of the meth, but was depressed before that. She was not suicidal before that. She also drinks alcohol daily with last drink about an hour prior to arrival. She drinks vodka mostly. Denies any other physical complaints at this time other than symptoms related to meth use. Allergies and Home Medications Allergies Coded Allergies: No Known Drug Allergies (Unverified , 05/11/14) Patient Home Medication List Home Medication List Reviewed: Yes Buspirone HCl (Buspirone HCl) 10 Mg Tablet, 10 MG PO BID, (Reported) Entered as Reported by: ELVIN FIORE on 05/17/191612 Citalopram Hydrobromide (Citalopram HBr) 40 Mg Tablet, 40 MG PO DAILY, (Reported) Entered as Reported by: ELVIN FIORE on 05/17/191612 Levothyroxine Sodium (Levothyroxine Sodium) 100 Mcg Tablet, 100 MCG PO DAILY, (Reported) Entered as Reported by: ELVIN FIORE on 05/17/191612 Trazodone HCl (Trazodone HCl) 50 Mg Tablet, 50 MG PO HS, (Reported) Entered as Reported by: ELVIN FIORE on 05/17/191612 Review of Systems Constitutional: No fever EENTM: no symptoms reported Respiratory: no symptoms reported Gastrointestinal: no symptoms reported Genitourinary: no symptoms reported Musculoskeletal: no symptoms reported Skin: no symptoms reported Psychiatric/Neurological: See HPI All Other Systems Reviewed Negative Unless Noted: Yes Past Dhuespf-Rbjtls-Adcdia Hx Patient Social History Tobacco Use?: Yes Substance use?: Yes Substance type: Methamphetamine Alcohol Use?: Yes Alcohol type: Hard Liquor Immunizations Up To Date Tetanus Booster (TDap): Less than 5yrs Seasonal Allergies Seasonal Allergies: No Past Medical History Surgery/Hospitalization HX: TBI, seizures, alcohol abuse, methamphetamine abuse, polysubstance abuse Surgeries: Yes (Skin Grafts) Respiratory: No Cardiac: No Neurological: Yes Concussion, Traumatic Brain Injury Reproductive Disorders: No Gastrointestinal: No Musculoskeletal: No Endocrine: Yes Hypothyroidsim HEENT: No Cancer: No Psychosocial: No Integumentary: No Blood Disorders: No Adverse Reaction/Blood Tranf: No Family Medical History No Pertinent Family Hx Physical Exam Vital Signs - First Documented 03/21/23 12:05 Temp 36.8 Pulse 109 Resp 26 B/P (MAP) 146/85 (105) O2 Delivery Room Air Capillary Refill : Height, Weight, BMI Height: 5'1.00" Weight: 140lbs. 0oz. [id number]; 29.00 BMI Method:Estimated General Appearance: WD/WN, mild distress HEENT: PERRL/EOMI, normal ENT inspection, pharynx normal Neck: non-tender, full range of motion, supple, normal inspection Respiratory: chest non-tender, lungs clear, normal breath sounds, no respiratory distress, no accessory muscle use Cardiovascular: no edema, tachycardia Gastrointestinal: normal bowel sounds, non tender, soft; No distended, No guarding, No rebound Extremities: normal range of motion, non-tender, normal inspection, no pedal edema, no calf tenderness, normal capillary refill Neurologic/Psychiatric: no motor/sensory deficits, alert Behavior/Eye Contact: good eye contact, increased rate of speech Thoughts/Hallucinations: flight of ideas, paranoid Skin: normal color, warm/dry Procedures/Interventions Date of ETT Placement: Nov 04, 2018 Progress/Results/Core Measures Results/Orders Lab Results Laboratory Tests Test 03/21/23 12:34 Range/Units White Blood Count 10.8 4.3-11.0 10^3/uL Red Blood Count 4.31 3.80-5.11 10^6/uL Hemoglobin 11.9 11.5-16.0 g/dL Hematocrit 36 35-52 % Mean Corpuscular Volume 83 80-99 fL Mean Corpuscular Hemoglobin 28 25-34 pg Mean Corpuscular Hemoglobin Concent 33 32-36 g/dL Red Cell Distribution Width 14.4 10.0-14.5 % Platelet Count 349 130-400 10^3/uL Mean Platelet Volume 9.3 9.0-12.2 fL Immature Granulocyte % (Auto) 1 % Neutrophils (%) (Auto) 63 42-75 % Lymphocytes (%) (Auto) 25 12-44 % Monocytes (%) (Auto) 10 0-12 % Eosinophils (%) (Auto) 0 0-10 % Basophils (%) (Auto) 1 0-10 % Neutrophils # (Auto) 6.8 1.8-7.8 10^3/uL Lymphocytes # (Auto) 2.7 1.0-4.0 10^3/uL Monocytes # (Auto) 1.1 H 0.0-1.0 10^3/uL Eosinophils # (Auto) 0.0 0.0-0.3 10^3/uL Basophils # (Auto) 0.1 0.0-0.1 10^3/uL Immature Granulocyte # (Auto) 0.1 0.0-0.1 10^3/uL Sodium Level 136 135-145 MMOL/L Potassium Level 3.2 L 3.6-5.0 MMOL/L Chloride Level 99 98-107 MMOL/L Carbon Dioxide Level 22 21-32 MMOL/L Anion Gap 15 H 5-14 MMOL/L Blood Urea Nitrogen 12 7-18 MG/DL Creatinine 0.69 0.60-1.30 MG/DL Estimat Glomerular Filtration Rate 113 BUN/Creatinine Ratio 17 Glucose Level 91 70-105 MG/DL Calcium Level 8.5 8.5-10.1 MG/DL Corrected Calcium 8.3 L 8.5-10.1 MG/DL Total Bilirubin 0.5 0.1-1.0 MG/DL Aspartate Amino Transf (AST/SGOT) 44 H 5-34 U/L Alanine Aminotransferase (ALT/SGPT) 35 0-55 U/L Alkaline Phosphatase 102 40-136 U/L Total Protein 7.5 6.4-8.2 GM/DL Albumin 4.2 3.2-4.5 GM/DL Serum Test, Qualitative NEGATIVE NEGATIVE Salicylates Level < 0.3 L 5.0-20.0 MG/DL Acetaminophen Level < 10 L 10-30 UG/ML Serum Alcohol 52 H <10 MG/DL SARS-CoV-2 RNA (RT-PCR) Not Detected Not Detecte My Orders Orders - NAOMI IRIZARRY MD Covid 19 Inhouse Test (03/21/23 12:13) Ua Culture If Indicated (03/21/23 12:13) Cbc And Automated Diff (03/21/23 12:13) Comprehensive Metabolic Panel (03/21/23 12:13) Alcohol (03/21/23 12:13) Drug Screen Stat (Urine) (03/21/23 12:13) Acetaminophen (03/21/23 12:13) Salicylate (03/21/23 12:13) Ekg Tracing (03/21/23 12:13) Monitor-Rhythm Ecg Trace Only (03/21/23 12:13) Bh Status Checks/Observation O Q15M (03/21/23 12:13) Droperidol Injection (Ed Only) (Droperid (03/21/23 12:15) Diphenhydramine Injection (Diphenhydram (03/21/23 12:15) Hcg,Qualitative Serum (03/21/23 12:40) Lorazepam Injection (Lorazepam Injection (03/21/23 20:00) Droperidol Injection (Ed Only) (Droperid (03/21/23 20:00) Medications Given in ED Current Medications Medications Dose Ordered Sig/Naya Route Start Time Stop Time Status Last Admin Dose Admin Diphenhydramine HCl 25 mg ONCE ONCE IM 03/21/23 12:15 03/21/23 12:16 DC 03/21/23 12:25 25 MG Droperidol 2.5 mg ONCE ONCE IM 03/21/23 12:15 03/21/23 12:16 DC 03/21/23 12:25 2.5 MG Vital Signs/I&O 03/21/23 12:05 Temp 36.8 Pulse 109 Resp 26 B/P (MAP) 146/85 (105) O2 Delivery Room Air Progress Progress Note : Progress Note 37-year-old female with above history coming in for mental health screening. ABCs were intact and vitals were stable on presentation although she is mildly tachycardic after using methamphetamines. Basic labs were obtained for his mental health screening. We called the mental health screeners, they stated they will not screener for least 12 hours after use of the meth which would be around 11 PM at night. The patient was very symptomatic from the meth use, she was given IM droperidol and Benadryl, was able to sleep afterwards. Labs were significant for negative test, normal creatinine, alcohol level in the 50s, negative aspirin and Tylenol levels. When the patient became clinically sober, she was stating she felt normal at that time, and is no longer exhibiting any suicidal or homicidal thoughts. She states that this time she would like to be discharged which I think is appropriate. Initial ECG Impression Date: Mar 21, 2023 Initial ECG Impression Time: 12:34 Initial ECG Rate: 114 Initial ECG Rhythm: S.Tach Comment Narrow QRS, normal axis, no significant ST changes or T wave abnormalities Departure Impression Primary Impression: Methamphetamine use Disposition: 01 HOME, SELF-CARE Condition: Improved Departure-Patient Inst. Decision time for Depature: 22:30 Referrals: NO,LOCAL PHYSICIAN (PCP/Family) Primary Care Physician Patient Instructions: OUTPT MENTAL HEALTH SERVICES Add. Discharge Instructions: Continue to try to get into outpatient rehab. We recommend calling [facility] mental health and they can help you with this. NAOMI IRIZARRY MD Mar 21, 2023 12:17
[2023-03-21 12:42] LABS: BASOPHILS # (AUTO) 0.1 10^3/uL (0.0-0.1); BASOPHILS % (AUTO) 1 % (0-10); EOSINOPHILS % (AUTO) 0 % (0-10); HEMATOCRIT 36 % (35-52); HEMOGLOBIN 11.9 g/dL (11.5-16.0); LYMPHOCYTES # (AUTO) 2.7 10^3/uL (1.0-4.0); LYMPHOCYTES % (AUTO) 25 % (12-44); MEAN CORPUSCULAR HEMOGLOBIN 28 pg (25-34); MEAN CORPUSCULAR HGB CONC 33 g/dL (32-36); MEAN CORPUSCULAR VOLUME 83 fL (80-99); MEAN PLATELET VOLUME 9.3 fL (9.0-12.2); MONOCYTES # (AUTO) 1.1 10^3/uL (0.0-1.0); MONOCYTES % (AUTO) 10 % (0-12); NEUTROPHILS # (AUTO) 6.8 10^3/uL (1.8-7.8); NEUTROPHILS % (AUTO) 63 % (42-75); PLATELET COUNT 349 10^3/uL (130-400); WHITE BLOOD COUNT 10.8 10^3/uL (4.3-11.0)
[2023-03-21 12:58] LABS: CHLORIDE 99 MMOL/L (98-107); POTASSIUM 3.2 MMOL/L (3.6-5.0); SODIUM 136 MMOL/L (135-145)
[2023-03-21 13:00] LABS: BUN/CREATININE RATIO 17; CARBON DIOXIDE 22 MMOL/L (21-32); CREATININE SERUM 0.69 MG/DL (0.60-1.30); GFR ESTIMATED 113
[2023-03-21 13:01] LABS: ACETAMINOPHEN < 10 UG/ML (10-30); ALANINE AMINOTRANSFERASE 35 U/L (0-55); ALBUMIN 4.2 GM/DL (3.2-4.5); ALKALINE PHOSPHATASE 102 U/L (40-136); BILIRUBIN,TOTAL 0.5 MG/DL (0.1-1.0); CALCIUM 8.5 MG/DL (8.5-10.1); GLUCOSE 91 MG/DL (70-105); SALICYLATE < 0.3 MG/DL (5.0-20.0); TOTAL PROTEIN 7.5 GM/DL (6.4-8.2)
[2023-03-21] MEDS ORDERED: DroPERidol INJECTION 5 MG/2 ML (ED ONLY!) IM PRN (20:00)
[2023-03-21] MEDS ORDERED: LORazepam 0.5 MG TABLET PO STA (22:43)
[2023-03-21 23:33] VITALS: BP 122/90
== END 2023-03-21 23:33 | disposition home or self-care (01) ==
LOC: EDUNIT# 11:56 → ER FS 11:58
DX: F15.90 Other stimulant use, unspecified, uncomplicated (principal)
CPT/HCPCS: 36415; 80053; 84703; 85025; 87636; 93005; 93041; 99284; G0480 ×3; 80320; 80329

== ENCOUNTER 2023-03-31 10:07 | Emergency (ER) | payer MEDICARE, MEDICAID ==
[~2023-03-31] VITALS: Ht 162.6 cm; Wt 70.0 kg
[2023-03-31 10:07] VITALS: BP 124/68
--- NOTE | 2023-03-31 10:16 | ED General ---
General Stated Complaint: ALCOHOL INTOXICATION History of Present Illness Date Seen by Provider: Mar 31, 2023 Time Seen by Provider: 10:11 Initial Comments 37-year-old female brought in for medical clearance for incarceration. She is intoxicated has no other complaints. Allergies and Home Medications Allergies Coded Allergies: No Known Drug Allergies (Unverified , 05/11/14) Patient Home Medication List Home Medication List Reviewed: Yes Buspirone HCl (Buspirone HCl) 10 Mg Tablet, 10 MG PO BID, (Reported) Entered as Reported by: ELVIN FIORE on 05/17/191612 Citalopram Hydrobromide (Citalopram HBr) 40 Mg Tablet, 40 MG PO DAILY, (Reported) Entered as Reported by: ELVIN FIORE on 05/17/191612 Levothyroxine Sodium (Levothyroxine Sodium) 100 Mcg Tablet, 100 MCG PO DAILY, (Reported) Entered as Reported by: ELVIN FIROE on 05/17/191612 Trazodone HCl (Trazodone HCl) 50 Mg Tablet, 50 MG PO HS, (Reported) Entered as Reported by: LEVIN FIORE on 05/17/191612 Review of Systems Review of Systems Constitutional: no symptoms reported Respiratory: no symptoms reported Cardiovascular: no symptoms reported Genitourinary: no symptoms reported Musculoskeletal: no symptoms reported Past Srfefnx-Ruvkbi-Nuxkis Hx Immunizations Up To Date Tetanus Booster (TDap): Less than 5yrs Seasonal Allergies Seasonal Allergies: No Past Medical History Surgery/Hospitalization HX: TBI, seizures, alcohol abuse, methamphetamine abuse, polysubstance abuse Surgeries: Yes (Skin Grafts) Respiratory: No Cardiac: No Neurological: Yes Concussion, Traumatic Brain Injury Reproductive Disorders: No Gastrointestinal: No Musculoskeletal: No Endocrine: Yes Hypothyroidsim HEENT: No Cancer: No Psychosocial: No Integumentary: No Blood Disorders: No Adverse Reaction/Blood Tranf: No Family Medical History No Pertinent Family Hx Physical Exam Vital Signs Vital Signs - First Documented 03/31/23 03/31/23 10:07 10:20 Temp 36.7 Pulse 79 Resp 17 B/P (MAP) 124/68 (86) Pulse Ox 98 O2 Delivery Room Air Capillary Refill : Height, Weight, BMI Height: 5'1.00" Weight: 140lbs. 0oz. 63.712798zc; 26.00 BMI Method:Estimated General Appearance: Other (Obviously intoxicated) Respiratory: No Accessory Muscle Use, No Respiratory Distress Cardiovascular: Regular Rate, Rhythm Neurologic/Psychiatric: Other (Intoxicated) Skin: Other (Mild diffuse abrasions) Procedures/Interventions Date of ETT Placement: Nov 04, 2018 Progress/Results/Core Measures Suspected Sepsis SIRS Temperature: Pulse: Respiratory Rate: Blood Pressure / Mean: Results/Orders Vital Signs/I&O 03/31/23 03/31/23 10:07 10:20 Temp 36.7 36.6 Pulse 79 81 Resp 17 18 B/P (MAP) 124/68 (86) Pulse Ox 98 O2 Delivery Room Air Room Air Capillary Refill : Progress Note : Progress Note Patient brought in for medical clearance by PD. She is intoxicated but she herself is not having any complaints. At this time I do not see any indications why she cannot be monitored by PD while in assisted. She was discharged to their custody. Departure Impression Primary Impression: Alcohol intoxication Qualified Codes: F10.920 - Alcohol use, unspecified with intoxication, uncomplicated Additional Impression: Medical clearance for incarceration Disposition: [address]/LAW ENFORCE Condition: Stable Departure-Patient Inst. Referrals: NO,LOCAL PHYSICIAN (PCP/Family) Primary Care Physician Patient Instructions: Alcohol Intoxication ED Add. Discharge Instructions: Cleared for incarceration STUART ROSE DO Mar 31, 2023 10:16
== END 2023-03-31 10:20 ==
LOC: EDUNIT# 10:07 → ER FS 10:08
DX: F10.129 Alcohol abuse with intoxication, unspecified (principal)
CPT/HCPCS: 99285